=== PATIENT | male | born 1965 | race Caucasian/White ===

== ENCOUNTER → 2020-05-07 | Outpatient (CLI) | payer OTHER ==
[~2020-05-07] MED LIST: ACTOS15 MG PO; ANALGESIC325 MG PO; CERTAGEN SOL1 BO1 NG; LISINOPRIL20 MG PO; MEGA TAURINE1000 MG PO; METFORMIN 500500 MG PO
== END ==
LOC: M.LAB 08:07
PROVIDERS: ATTEND Internal Medicine Gastroenterology
DX: Z01.812 Encounter for preprocedural laboratory examination (principal); Z20.822 Contact with and (suspected) exposure to COVID-19; Z12.11 Encounter for screening for malignant neoplasm of colon